=== PATIENT | female | born 1940 | race Caucasian/White ===

== ENCOUNTER 2024-01-09 08:28 | Emergency (ER) | payer MEDICARE, BC, SELFPAY ==
--- NOTE | 2024-01-09 08:15 | RT.EKG_ITS ---
APPROVED REPORT Exam: Resting ECG Reason for Exam: Fall, Patient Location: E HR:63 bpm ECG Measurements Heart Rate 63 AXIS SC 220 P 49 QRSd 96 QRS -8 QT 402 T 81 QTc 412 Conclusion Sinus rhythm...normal P axis, V-rate 60- 99 Prolonged SC interval...SC >220, V-rate 50- 90
--- NOTE | 2024-01-09 08:15 | DI.RAD_ITS ---
Exam(s) XR PELVIS AP XR FEMUR RT EXAM: XR PELVIS AP CLINICAL HISTORY: Right hip pain, fall. TECHNIQUE: 2D digital imaging was performed. Single AP view. COMPARISON: CR XR FEMUR RT from 01/09/2024 FINDINGS: BONES: There are bilateral hip prostheses. There is disruption of the right hip prosthesis at the [place] of the intertrochanteric region. There is displacement medially of the femoral shaft as well as some varus angulation. The left hip prosthesis appears intact. No additional fractures are seen in the pelvis or femur. No bony destructive lesion is seen. JOINTS: No dislocation present. SI joints and pubic symphysis are unremarkable. Degenerative changes at the knee. SOFT TISSUE: Normal. IMPRESSION: Disruption of the right hip prosthesis at the level of the intertrochanteric region. DATA REPOSITORY: RADIATION DOSE DELIVERED:
--- NOTE | 2024-01-09 08:15 | DI.RAD_ITS ---
Exam(s) XR CHEST 1V IN DI DEPT EXAM: XR CHEST 1V IN DI DEPT CLINICAL HISTORY: Fall, hip pain TECHNIQUE: 2D digital imaging was performed. COMPARISON: No exams were available for comparison FINDINGS: LUNGS: Clear. No pleural abnormality seen. HEART: Enlarged. AORTA: Normal diameter. Calcification at arch. Mildly tortuous. BONES: Unremarkable for age. Soft tissues: Unremarkable. IMPRESSION: No acute findings. DATA REPOSITORY: RADIATION DOSE DELIVERED:
[2024-01-09 08:19] VITALS: BP 179/81; PULSE 73; RESP 18; TEMP 36.5; O2SAT 98
--- NOTE | 2024-01-09 08:22 | ED.GENADUL_ITS ---
Discharge Plan Disposition Patient Disposition: Transfer-Acute Inpatient Care Specific Acute Inpt Facility: [facility] Condition: Stable Discharge Details Clinical Impression: Broken internal right hip prosthesis, initial encounter Primary Care Provider: Asim White ED Provider: Maida Patel Home Meds and New Rx's Prescriptions: No Action hydrochlorothiazide 25 mg tablet 25 mg PO DAILY ramipril 10 mg capsule 10 mg PO DAILY carvedilol 25 mg tablet 12.5 mg PO BID Rx Instructions: must administer with a meal/food HPI General Mode of arrival: EMS . Date/Time Provider Initiated Documentation: 01/09/24 09:06 . Limitations to Documentation: no limitations . Information obtained by: patient, EMS, RN notes reviewed and old records reviewed . HPI Narrative: 83 year old female presents to the ER with a chief complaint of right leg pain status post fall. Patient reports that she was at the cancer center for her radiation therapy for breast cancer and was holding onto the rail because she had been having some right leg pain which began last night. She reports that she felt her leg buckle and she fell down. She is complaining of some right inner groin pain. She did take ibuprofen last night. She did not hit her head denies any neck or back pain. No other associated symptoms or concerns. She did not receive her treatment this morning. She does have a past medical history of of breast cancer, hypertension and history of total bilateral hip re placements. Related Data Home Medications Medication Instructions Recorded Confirmed carvedilol 25 mg tablet 12.5 mg PO BID 06/08/21 08/13/23 hydrochlorothiazide 25 mg tablet 25 mg PO DAILY 06/08/21 08/13/23 ramipril 10 mg capsule 10 mg PO DAILY 06/08/21 08/13/23 Allergies Allergy/AdvReac Type Severity Reaction Status Date / Time ciprofloxacin Allergy Intermediate Skin Rash Verified 01/09/24 08:48 Sulfa (Sulfonamide Allergy Intermediate Skin Rash Verified 01/09/24 08:48 Antibiotics) sulfamethoxazole Allergy Unknown Other (See Verified 01/09/24 08:48 [From Bactrim] Comment) trimethoprim [From Bactrim] Allergy Unknown Other (See Verified 01/09/24 08:48 Comment) Review of Systems All systems reviewed & are unremarkable except as noted in HPI and below Musculoskeletal Musculoskeletal: Reports as per HPI and Reports arthralgias (Right hip) Exam Narrative Exam Narrative: General: Well Developed, Awake and Alert, conversant. Skin: Warm and Dry HEENT: Head: No palpable deformities, Normocephalic Eyes: Pupils PERRLA, EOM's intact. No periorbital eccymosis or step off Ears: Canal patent. Tympanic membranes are clear . No xavier's sign, no hemptympanum. Nose/Face: Atraumatic. Facial bones nontender to palpation and stable with manipulation. Mouth/Throat: No intraoral trauma. Teeth and mandible are intact. Neck: No midline tenderness, no step off, no deformity to palpation of C-spine. Trachea midline. Chest: No surface trauma. Nontender without crepitus or deformity. Lungs clear to ausculatation bilaterally. Heart: RRR, no rubs, murmurs or gallop. Abdomen: No abrasions, ecchymosis, or surface trauma. Nondistended. Nontender to palpation no guarding, rebound, or rigidity. Pelvis: Tender right groin. Femoral pulses strong and equal Extremities: no surface trauma. Sensation intact. Peripheral pulses intact and equal. Neuro: ANO x4, GCS 15, cranial nerves II through XII intact. Motor and sensory exam nonfocal. Reflexes are symmetric. Medical Decision Making 83 year old female presents to the ER with a chief complaint of right leg pain status post fall. Patient reports that she was at the cancer center for her radiation therapy for breast cancer and was holding onto the rail because she had been having some right leg pain which began last night. She reports that she felt her leg buckle and she fell down. She is complaining of some right inner groin pain. She did take ibuprofen last night. She did not hit her head denies any neck or back pain. No other associated symptoms or concerns. She did not receive her treatment this morning. She does have a past medical history of of breast cancer, hypertension and history of total bilateral hip replacements. 0907: Ortho paged. 0918: Spoke with Dr. Contreras, he was able to view the images, He recommends most likely referral to tertiary care center, will discuss with patient and re- connect here. Images pushed to [facility]. 0929: Discussed X-rays and possible transfer if needed, she verbalizes understanding, she did have her previous hip replacements in [place] in 2007. Offered analgesic, patient declined at this time. 0939: [facility] transfer center contacted for transfer request. 1038: Spoke with Estrella Bryant with orthopedics resident, spoke with, they will accept her with hospital medicine, they will call back. 1046: Dr. Bunn with hospitalist at [facility] agrees to accept patient for admission. They will call back with bed assignment. Discussed plan of care with patient and son who verbalized understanding. Discussed n.p.o. status. Patient last ate around 7 this morning and a half of a Thai. 1322: [facility] transfer center called to check on bed status, no bed assignment yet at this time. Patient accepted at [facility], awaiting bed assignment, at the end of my shift, no bed as of yet. This text was generated using Sig[employer]ation system, please disregard any oddities of phrase or misspellings. Medical Records Medical records reviewed: Yes I reviewed the patient's medical records. Imaging Data Radiologic Study: Imaging: X-Ray Radiologist's impression: EXAM: XR PELVIS AP CLINICAL HISTORY: Right hip pain, fall. TECHNIQUE: 2D digital imaging was performed. Single AP view. COMPARISON: CR XR FEMUR RT from 01/09/2024 FINDINGS: BONES: There are bilateral hip prostheses. There is disruption of the right hip prosthesis at the level of the intertrochanteric region. There is displacement medially of the femoral shaft as well as some varus angulation. The left hip prosthesis appears intact. No additional fractures are seen in the pelvis or femur. No bony destructive lesion is seen. JOINTS: No dislocation present. SI joints and pubic symphysis are unremarkable. Degenerative changes at the knee. SOFT TISSUE: Normal. IMPRESSION: Disruption of the right hip prosthesis at the level of the intertrochanteric region. Lab Data Lab results reviewed: Yes I reviewed the patient's lab results. Labs: Laboratory Tests Range/Units 01/09/24 08:45 WBC (4.4-10.8) 10^3/uL 6.77 RBC (3.93-5.22) 10^6/uL 4.36 Hgb (11.2-15.7) g/dL 12.8 Hct (36.0-46.0) % 38.2 MCV (80-95) fL 88 MCH (27.0-33.0) pg 29.4 MCHC (32.0-36.0) % 33.5 RDW (11.7-14.6) % 13.2 Plt Count (130-400) 10^3/uL 266 MPV (8.0-11.0) fL 9.7 Immature Gran % 0.3 Neutrophils % 64.2 Lymphocytes % 24.1 Monocytes % 8.0 Eosinophils % 3.0 Basophils % 0.4 Nucleated RBC % (0.0-0.3) % 0.0 Absolute Neutrophils (1.2-6.7) 10^3/uL 4.35 Absolute Lymphocytes (1.2-3.4) 10^3/uL 1.63 Absolute Monocytes (0.1-0.8) 10^3/uL 0.54 Absolute Eosinophils (0.0-0.7) 10^3/uL 0.20 Absolute Basophils (0.0-0.2) 10^3/uL 0.03 Sodium (136-145) mmol/L 141 Potassium (3.5-5.1) mmol/L 3.6 Chloride (98-107) mmol/L 105 Carbon Dioxide (21.0-32.0) mmol/L 24.9 Anion Gap (3-11) mmol/L 11.1 H BUN (7-18) mg/dL 30 H Creatinine (0.55-1.02) mg/dL 1.3 H Est GFR (CKD-EPI 2020) (mL/min/1.73m2) 41.06 Glucose (74-106) mg/dL 106 Calcium (8.5-10.1) mg/dL 9.0 Total Bilirubin (0.2-1.0) mg/dL 0.5 AST (15-37) U/L 17 ALT (14-59) U/L 25 Alkaline Phosphatase (46-116) U/L 81 Total Protein (6.4-8.2) g/dL 7.0 Albumin (3.4-5.0) g/dL 3.5 Quality:SDOH Health Related Social Needs: No Data to Display PFSH All Active Problems (Updated 01/09/24 @ 10:54 by Maida Patel NP) Broken internal right hip prosthesis, initial encounter (Acute) Impacted cerumen, bilateral (Acute) Asymmetrical sensorineural hearing loss (Acute) Impacted cerumen, right ear (Acute) Cerumen impaction (Acute) Hypertension (Chronic) Breast cancer in situ (Acute) Medical History Conductive hearing loss, external ear Surgical History (Reviewed 01/09/24 @ 08: by Maida Patel NP) History of lumpectomy of left breast History of total hip replacement Family History Father Heart disease Hypotension Mother Emphysema lung Brother Cancer Social History Smoking/Tobacco Use Status: Never Smoking risk assessment performed?: Yes Alcohol Intake: current Alcohol Intake frequency: a few times a month Drug use: Never Household members: spouse Housing: house current occupation: retired from the [employer] What is your relationship status?: Panel score (0-1 are the most socially isolated patients): 1
[2024-01-09 08:55] LABS: Abs Immature Grans 0.02 10^3/uL (0.0-0.06); Absolute Basophil Count 0.03 10^3/uL (0.0-0.2); Absolute Lymphocyte Count 1.63 10^3/uL (1.2-3.4); Absolute Monocyte Count 0.54 10^3/uL (0.1-0.8); Absolute Neutrophil Count 4.35 10^3/uL (1.2-6.7); Basophils % 0.4; HCT 38.2 % (36.0-46.0); HGB 12.8 g/dL (11.2-15.7); Immature Grans % 0.3; Lymphocytes % 24.1; MCH 29.4 pg (27.0-33.0); MCHC 33.5 % (32.0-36.0); MCV 88 fL (80-95); MPV 9.7 fL (8.0-11.0); Neutrophils % 64.2; Platelet Count 266 10^3/uL (130-400); RBC 4.36 10^6/uL (3.93-5.22); RDW 13.2 % (11.7-14.6); RDW-SD 42.4 fL; WBC 6.77 10^3/uL (4.4-10.8)
[2024-01-09 09:15] LABS: ALT 25 U/L (14-59); AST 17 U/L (15-37); Albumin 3.5 g/dL (3.4-5.0); Alkaline Phosphatase 81 U/L (46-116); Anion Gap 11.1 mmol/L (3-11); BUN 30 mg/dL (7-18); Bilirubin, Total 0.5 mg/dL (0.2-1.0); CO2 24.9 mmol/L (21.0-32.0); CREATININE 1.3 mg/dL (0.55-1.02); Chloride 105 mmol/L (98-107); Estimated GFR 41.06 (mL/min/1.73m2); Glucose 106 mg/dL (74-106); Potassium 3.6 mmol/L (3.5-5.1); Sodium 141 mmol/L (136-145)
== END 2024-01-09 18:51 | disposition short-term general hospital (02) ==
PROVIDERS: Emergency Provider Registered Nurse Emergency; PCP Family Medicine
DX: M97.01XA Periprosthetic fracture around internal prosthetic right hip joint, initial encounter (principal); C50.919 Malignant neoplasm of unspecified site of unspecified female breast; Z92.3 Personal history of irradiation; W18.39XA Other fall on same level, initial encounter; Y92.018 Other place in single-family (private) house as the place of occurrence of the external cause; Y93.89 Activity, other specified
CPT/HCPCS: 36415; 73552; 80053; 93005; 99285; 71045; 72170; 85025; 93010